=== PATIENT | female | born 1950 | race African-American/Black ===

== ENCOUNTER 2017-05-05 16:10 | Inpatient (IN) | payer MEDICAID, MEDICARE, OTHER ==
[~2017-05-05] VITALS: Ht 170.2 cm; Wt 66.9 kg
[2017-05-05] MEDS ORDERED: ASPIRIN 81 MG TAB.CHEW PO ONE (16:21)
[2017-05-05] MEDS ORDERED: METO-302 PO (16:21)
[2017-05-05] MEDS ORDERED: ASPI81TA31 PO (16:21)
[2017-05-05] MEDS ORDERED: NITROGLYCERIN OINT 1 GM PACKET TP ONE ×2 (16:57→17:21)
[2017-05-05] MEDS ORDERED: MORPHINE SULFATE 2 MG/1 ML DISP.SYRIN IV ONE (16:57)
[2017-05-05] MEDS ORDERED: ASPIRIN 81 MG TAB.CHEW ONE (17:03)
[2017-05-05 17:09] LABS: BASOPHILS # (AUTO) 0.3 K/uL (0.0-8.0); BASOPHILS % (AUTO) 1.8 % (0.0-2.0); EOSINOPHILS # (AUTO) 0.2 K/uL (0.0-0.7); EOSINOPHILS % (AUTO) 1.4 % (0.0-7.0); HEMATOCRIT 38.9 % (37-47); HEMOGLOBIN 12.7 G/DL (12.0-16.0); LYMPHOCYTES # (AUTO) 3.4 K/UL (0.8-4.8); LYMPHOCYTES % (AUTO) 23.7 % (20.5-51.5); MEAN CORPUSCULAR HEMOGLOBIN 27.2 UUG (27.0-31.0); MEAN CORPUSCULAR HGB CONC 33 g/dL (32.0-37.0); MEAN CORPUSCULAR VOLUME 83.1 FL (81.0-99.0); MONOCYTES % (AUTO) 6.8 % (0.0-11.0); NEUTROPHILS # (AUTO) 9.4 K/UL (1.8-8.9); NEUTROPHILS % (AUTO) 66.3 % (38.5-71.5); PLATELET COUNT (AUTO) 442 K/UL (150-450); RED BLOOD CELL COUNT(AUTO) 4.68 MIL/UL (4.2-5.4); WHITE BLOOD COUNT (AUTO) 14.3 K/UL (4.0-11.2)
[2017-05-05 17:16] LABS: POTASSIUM 3.3 mmol/L (3.5-5.1)
[2017-05-05 17:22] LABS: BILIRUBIN,TOTAL 0.2 mg/dL (0.2-1.0); TOTAL PROTEIN, SERUM 7.1 g/dL (6.4-8.2)
[2017-05-05] MEDS ORDERED: MORPHINE SULFATE 4 MG/1 ML DISP.SYRIN ONE (17:22)
[2017-05-05 17:40] LABS: BAND % (MANUAL) 8 % (0-10); EOSINOPHILS % (MANUAL) 2 % (0-8); LYMPHOCYTES % (MANUAL) 21 % (20-40); MONOCYTES % (MANUAL) 7 % (2-10); NEUTROPHILS % (MANUAL) 62 % (42-75)
[2017-05-05] MEDS ORDERED: PANTOPRAZOLE SODIUM IV 40 MG in IV DEXTROSE 5% 100 ML IV ONE (17:45)
--- NOTE | 2017-05-05 17:50 | NUR ---
NEW PATIENT FROM ER TO ROOM 216 AWAKE ALERT ,COOPERATE WELL NO SOB OR CHEST PAIN AT THIS TIME VS TAKEN STABLE CALL LIGHT INSTRUCTION AND REMIND TO CALL WHEN NEEDED
[2017-05-05 18:15] VITALS: BP 146/89
[2017-05-05 20:00] VITALS: BP 122/76
--- NOTE | 2017-05-05 20:00 | NUR ---
RECEIVED PATIENT ASLEEP IN BED. NO S/S OF PAIN OR DISCOMFORT. NO RESP. DISTRESS NOTED. ON TELE SR. VS WNL. H/L INTACT AND PATENT. BED ALARM ON. CALL LIGHT IN REACH. ALL NEEDS ATTENDED. WILL CONTINUE TO MONITOR AND ASSESS.
[2017-05-05] MEDS ORDERED: POTASSIUM CHLORIDE 20 MEQ TAB.PRT.SR PO ONE (20:30)
[2017-05-05] MEDS ORDERED: HYDROCODONE/APAP 5-325MG TABLET PO PRN (20:30)
[2017-05-05] MEDS ORDERED: NITROGLYCERIN 0.3 MG/TAB BOTTLE SL PRN (20:30)
[2017-05-05] MEDS ORDERED: ONDANSETRON 4 MG/2 ML VIAL IV PRN (20:30)
[2017-05-05] MEDS ORDERED: MAGNESIUM HYDROXIDE 30 ML LIQUID UDC PO PRN (20:30)
[2017-05-05] MEDS ORDERED: ZOLPIDEM 5 MG TABLET PO PRN (20:30)
[2017-05-05] MEDS ORDERED: ACETAMINOPHEN 325 MG TABLET PO PRN (20:30)
[2017-05-05] MEDS ORDERED: POTASSIUM CHLORIDE 20 MEQ TAB.PRT.SR ONE ×2 (20:49→20:58)
[2017-05-05 20:59] LABS: *BILIRUBIN,URIN NEGATIVE (NEGATIVE); *BLOOD, URINE 2+ (NEGATIVE); *COLOR,URINE YELLOW (YELLOW); *KETONES,URINE NEGATIVE (NEGATIVE); *PROTEIN,URINE NEGATIVE (NEGATIVE); *UROBILINOGEN,URINE 0.2 E.U./dl (NORMAL); LEUKOCYTE ESTERASE ,URINE TRACE (NEGATIVE); NITRITE, URINE NEGATIVE (NEGATIVE); UGLUCOSE NEGATIVE (NEGATIVE)
--- NOTE | 2017-05-05 21:00 | NUR ---
PATIENT AWAKE IN BED. DENIES ANY CHEST PAIN OR DISCOMFORT. CONTINUED ON TELE ORDERED, SR. WILL CONTINUE TO MONITOR AND ASSESS.
[2017-05-05 21:11] LABS: *CLARITY,URINE SLIGHTLY HAZY (CLEAR)
[2017-05-05 21:14] LABS: BACTERIA,URINE FEW /HPF (NONE SEEN); MUCUS,URINE FEW /LPF (0-FEW); SQUAMOUS EPITHELIAL CELL,UR MODERATE /HPF (NONE SEEN)
[2017-05-06 00:30] VITALS: BP 97/64
[2017-05-06] MEDS ORDERED: ACETAMINOPHEN 325 MG TABLET ONE (02:33)
[2017-05-06 04:46] VITALS: BP 100/61
--- NOTE | 2017-05-06 05:54 | NUR ---
PATIENT ASLEEP IN BED. SLEPT WELL. VSS. ON TELE SR. PATIENTS HEART RATE DROPPED TO 45 BPM, NON-SUSTAINED WHILE ASLEEP. CALL LIGHT IN REACH. ALL NEEDS ATTENDED. WILL CONTINUE TO MONITOR .
[2017-05-06] MEDS ORDERED: PANTOPRAZOLE SODIUM 40 MG TABLET.DR PO SCH (07:00)
--- NOTE | 2017-05-06 08:00 | NUR ---
AWAKE ALERT COOPERATE WELL NO CHEST PAIN OR SOB RESTING WELL WITH CALL LIGHT IN REACH
[2017-05-06 08:26] LABS: BILIRUBIN,TOTAL 0.5 mg/dL (0.2-1.0); CREATININE 0.9 mg/dL (0.6-1.3); MAGNESIUM 1.4 mg/dL (1.8-2.4); PHOSPHOROUS 3.5 mg/dL (2.5-4.9); POTASSIUM 3.9 mmol/L (3.5-5.1); TOTAL PROTEIN, SERUM 6.7 g/dL (6.4-8.2)
[2017-05-06] MEDS: METOPROLOL SUCCINATE XL 25 MG TAB.SR.24H PO SCH ×2 (08:35→12:00)
[2017-05-06 08:38] LABS: THYROID STIMULATING HORMONE 1.633 mIU/mL (0.358-3.740)
[2017-05-06 08:39] LABS: BASOPHILS # (AUTO) 0.1 K/uL (0.0-8.0); BASOPHILS % (AUTO) 0.7 % (0.0-2.0); EOSINOPHILS # (AUTO) 0.2 K/uL (0.0-0.7); EOSINOPHILS % (AUTO) 1.7 % (0.0-7.0); HEMATOCRIT 37.3 % (31.2-41.9); HEMOGLOBIN 12.6 g/dL (10.9-14.3); LYMPHOCYTES # (AUTO) 2.9 K/uL (20.0-40.0); LYMPHOCYTES % (AUTO) 24.1 % (20.5-51.5); MEAN CORPUSCULAR HGB CONC 34 g/dL (32.3-35.6); MEAN CORPUSCULAR VOLUME 82.9 fL (75.5-95.3); MONOCYTES # (AUTO) 1.2 K/uL (2.0-10.0); NEUTROPHILS # (AUTO) 7.7 K/uL (1.8-8.9); NEUTROPHILS % (AUTO) 63.5 % (38.5-71.5); PLATELET COUNT (AUTO) 390 K/uL (179-408); WHITE BLOOD COUNT (AUTO) 12.2 K/uL (3.8-11.8)
[2017-05-06] MEDS ORDERED: ASPIRIN 81 MG TAB.CHEW PO SCH (09:00)
--- NOTE | 2017-05-06 09:00 | NUR ---
FRANCIS SEE PATIENT NO NEW ORDER SCHEDULE FOR 2 D [facility] TODAY
[2017-05-06] MEDS ORDERED: MAGNESIUM OXIDE 400 MG TABLET PO ONE (10:15)
--- NOTE | 2017-05-06 10:30 | NUR ---
[facility] CARDIOGRAM PERFORM AT BEDSIDE TREVOR PROCEDURE WELL
[2017-05-06 11:55] VITALS: BP 128/81
--- NOTE | 2017-05-06 14:00 | NUR ---
D/C INSTRUCTION REGARDING F/U WITH OWN PMD CONTINUE HOME MEDICINE AND EDUCATION PK GAVE ,VERBALIZES UNDERSTAND AND SIGNS D/C SHEET HL WAS DISCONTINUE PRIOR D/C HOME TODAY
[2017-05-06] MEDS ORDERED: NITR100C11 PO (15:24)
[2017-05-06] MEDS ORDERED: ATOR10TA PO (15:24)
[2017-05-06 15:40] VITALS: BP 125/84
--- NOTE | 2017-05-06 16:00 | NUR ---
D/C HOME WITH HER BELONGING CONDITION STABLE ACCOMPANIES WITH DAUGHTER PRECRIPTION GIVEN WITH INSTRUCTION VERBALIZES UNDERSTAND
== END 2017-05-06 16:00 | disposition home or self-care (01) | DRG 198 ==
LOC: ER 16:12 → TELE 17:33 → MED 05-06 10:52
PROVIDERS: ADMIT Internal Medicine; ATTEND Internal Medicine
DX: I20.9 Angina pectoris, unspecified (principal); E83.42 Hypomagnesemia; I10 Essential (primary) hypertension; F41.9 Anxiety disorder, unspecified; I45.2 Bifascicular block; F17.210 Nicotine dependence, cigarettes, uncomplicated; R07.89 Other chest pain; Z90.710 Acquired absence of both cervix and uterus; K58.0 Irritable bowel syndrome with diarrhea; Z79.82 Long term (current) use of aspirin; Z79.899 Other long term (current) drug therapy; N39.0 Urinary tract infection, site not specified; E78.5 Hyperlipidemia, unspecified; E87.6 Hypokalemia
CPT/HCPCS: 36415; 70030-TC; 71010; 83735; 84100; 84443; 85025; 85610; 87086; 93005; 93307; A4663; J2270; J2405